=== PATIENT | female | born 1955 | race African-American/Black ===

== ENCOUNTER → 2017-01-03 | Outpatient (CLI) | payer OTHER ==
--- NOTE | ~2017-01-03 | HM ---
Unit #: [id number] #: [id number] Patient: AYAH CASTILLO [id number] [address] [address] [id number] MR#: [id number] NAME: AYAH CASTILLO. : 1955 SEX: F STUDY DATE/TIME: 01/03/2017 UNIT: [facility] ROOM: STUDY DESCRIPTION: Attending Physician: Yulissa Gomes Aprn Referring Physician: Yulissa Gomes Aprn Primary Care Physician: Desiree Winston M.D. CARDIOLOGY REPORT EXAM 24-hour Holter monitor. DATE APPLIED 01/03/2017 DATE SCANNED 01/10/2017 READ BY [facility] ORDERED BY Yulissa Gomes APRN REASON FOR STUDY Palpitations. SUMMARY The patient was monitored for 24 hours. A total of 176,117 QRS complexes were analyzed. There were less than 1% ventricular ectopic beats. The patient was in atrial fibrillation. Average heart rate was 122 beats per minute. Minimum heart rate of 71 beats per minute occurred at approximately 3 a.m. Maximum heart rate 195 beats per minute occurred at approximately 8:30 a.m. There were no significant pauses. The Holter monitor notes supraventricular ectopic beats. All beats are atrial fibrillation. Ventricular ectopy: Eight two isolated beats with no runs. Symptoms: Patient noted sweating while cooking at approximately 1 p.m. Heart rate was 138 beats per minute. During this time, atrial fibrillation was noted. Patient again noted sweating heavily while doing laundry at approximately 3 p.m. Again, atrial fibrillation was noted, 134 beats per minute. There were no other symptoms noted. IMPRESSION Atrial fibrillation with very rapid ventricular response. No significant ventricular ectopy. Overall number of heart beats during the day Unit #: [id number] #: [id number] Patient: AYAH CASTILLO approximately 50% greater than average, which may help explain some of the patient's symptoms. Dictated by... Paul Mcadams/aviva TD: 01/11/2017 09:02 JOB #: [id number] CARDIOLOGY REPORT Page 1 of 1 X Carlton Crisostomo MD HOLTER MONITOR REPORT
== END | disposition home or self-care (01) ==
LOC: CEKG 15:39
DX: R00.2 Palpitations (principal)
CPT/HCPCS: 93225; 93226